=== PATIENT | female | born 1970 | race Caucasian/White ===

== ENCOUNTER 2018-07-10 20:31 | Emergency (ER) | payer SELFPAY ==
[2018-07-10] MEDS ORDERED: MORPHINE SULFATE IR 15 MG TABLET PO ONE (23:31)
[2018-07-10] MEDS ORDERED: ONDANSETRON 4 MG TAB.RAPDIS PO ONE (23:31)
--- NOTE | 2018-07-10 23:33 | ER Document Report ---
ED Medical Screen (RME) - General Chief Complaint: Anemia Stated Complaint: STOMACH PAIN Time Seen by Provider: 07/10/18 23:30 Notes: 47-year-old female with a history of ascites and anemia, chief complaint of worsening abdominal pain over the past 2 days, she does report abdominal swelling. She states that she was told that she does not have cirrhosis, she states that gastroenterology in [place], was recently admitted at [facility] and discharged. She denies fever, vomiting, bloody bowel movements. She reports weakness, states she has been transfused multiple times in the past. Denies dizziness or passing out. TRAVEL OUTSIDE OF THE [place] IN LAST 30 DAYS: No Physical Exam - Vital signs Vitals: Temp Pulse Resp BP Pulse Ox 97.9 F 111 H 20 127/70 H 100 07/10/18 21:33 07/10/18 21:33 07/10/18 21:33 07/10/18 21:33 07/10/18 21:33 - General General appearance: Appears well In distress: None - Abdominal Distension: Distended Tenderness: Tender - Generalized Course - Re-evaluation Re-evalutation: Patient insists she does not have cirrhosis, she has what appears to be gross ascites with generalized abdominal tenderness but not rigidity. No fever. Mildly tachycardic. No previous records here. - Vital Signs Vital signs: Temp Pulse Resp BP Pulse Ox 97.9 F 111 H 20 127/70 H 100 07/10/18 21:33 07/10/18 21:33 07/10/18 21:33 07/10/18 21:33 07/10/18 21:33
[2018-07-11 00:50] LABS: HEMATOCRIT 29.2 % (36.0-47.0); HEMOGLOBIN 9.7 g/dL (12.0-15.5); MEAN CORPUSCULAR HEMOGLOBIN 29.1 pg (27.0-33.4); MEAN CORPUSCULAR HGB CONC 33.3 g/dL (32.0-36.0); MEAN CORPUSCULAR VOLUME 87 fl (80-97); PLATELET COUNT 203 10^3/uL (150-450); RED BLOOD COUNT 3.35 10^6/uL (3.72-5.28); RED CELL DISTRIBUTION WIDTH 26.2 % (11.5-14.0); WHITE BLOOD COUNT 10.5 10^3/uL (4.0-10.5)
[2018-07-11 00:59] LABS: INTERNATIONAL RATION (INR) 1.15; PROTHROMBIN TIME 15.3 SEC (11.4-15.4)
[2018-07-11 01:00] LABS: PARTIAL THROMBOPLASTIN TIME 35.4 SEC (23.5-35.8)
[2018-07-11 01:46] LABS: ABSOLUTE LYMPHOCYTES# (MANUAL) 1.3 10^3/uL (0.5-4.7); ABSOLUTE MONOCYTES # (MANUAL) 0.4 10^3/uL (0.1-1.4); ABSOLUTE NEUTROPHILS# (MANUAL) 8.5 10^3/uL (1.7-8.2); ANISOCYTOSIS 3+; BASOPHILS % (MANUAL) 1 % (0-2); EOSINOPHILS % (MANUAL) 2 % (0-6); LYMPHOCYTES % (MANUAL) 12 % (13-45); MONOCYTES % (MANUAL) 4 % (3-13); POIKILOCYTOSIS SLIGHT; SEGMENTED NEUTROPHILS % (MAN) 81 % (42-78); TOTAL CELLS COUNTED 100; TOXIC GRANULATION 1+
[2018-07-11 01:47] LABS: PLATELET CLUMPS PRESENT; PLATELET COMMENT ADEQUATE; PLATELET LARGE PRESENT; SCHISTOCYTES 1+
[2018-07-11] MEDS ORDERED: NICOTINE 21 MG/24 HR PATCH.TD24 TD ONE (02:09)
--- NOTE | 2018-07-11 02:17 | ER Document Report ---
ED General - General Chief Complaint: Anemia Stated Complaint: STOMACH PAIN Time Seen by Provider: 07/10/18 23:30 TRAVEL OUTSIDE OF THE [place] IN LAST 30 DAYS: No - HPI Notes: 47-year-old female who is an exceptionally poor historian presents with abdominal pain and distention. Patient states she has a history of similar presentation 15 years ago and was told it was because "too much sodium". She indicates over the last 3-4 weeks she has developed increased abdominal girth and pain. She states that she was admitted at [facility] a couple of weeks ago, by description they did at least 2 separate paracentesis, ultrasound and extensive workup. She is very vague about the remainder the history but states that she "does not have cirrhosis". Her agrees that she looks chronically ill and is been going on for at least several weeks or months. She used to be a heavy drinker but states she is "cut down" a lot last 2 years. She is a smoker. Describes diffuse aching pain that radiates into her back. Ongoing for some time. She was seen by the physician in triage where labs were ordered, ultrasound is ordered and she was given oral morphine. No other modifying factors, no other associated symptoms, no other provocative or palliative factors. Past Medical History - Social History Smoking Status: Current Every Day Smoker Family History: Reviewed & Not Pertinent Review of Systems - Review of Systems Notes: Review of systems as in the history of present illness, otherwise negative x 10 systems. Physical Exam - Vital signs Vitals: Temp Pulse Resp BP Pulse Ox 97.9 F 111 H 20 127/70 H 100 07/10/18 21:33 07/10/18 21:33 07/10/18 21:33 07/10/18 21:33 07/10/18 21:33 - Notes Notes: General: Chronically ill in appearance HEENT: Normocephalic, atraumatic. Pupils equal round reactive to light. No JVD. There appear mildly icteric Chest: No trauma. Respiratory: Good air exchange, normal excursion. Cardiac: Regular rhythm. No murmurs or gallops. Abdomen: Soft and distended, no guarding rigidity or rebound. No obvious tenderness. Significant fluid wave is noted. Back: No asymmetry or gross abnormality. Motor: Grossly normal power and tone. Neurologic: Alert, nonfocal. Cranial nerves II-12 are intact. Sensation intact. Vascular: Well perfused. Normal peripheral pulses. Skin: No petechiae or purpura. Course - Re-evaluation Re-evalutation: 07/11/18 02:16 Chronically ill-appearing female who has gross evidence of ascites. Certainly appears to be high risk for underlying cirrhosis. Abdomen is benign, afebrile, I think SBP is somewhat unlikely. Discomfort and pain to be related to her underlying distention. Of note, she has no respiratory embarrassment or compromise. Plan to check with labs, ultrasound, serial examination and reassess. 07/11/18 03:55 Labs reviewed, CBC unremarkable with the exception of anemia, hemoglobin 9.7. LFTs are modestly elevated. Albumin low consistent with her underlying cirrhosis history. Ultrasonography shows ascites and likely cirrhosis. Records are obtained from [facility] and they reference her long- standing history of ascites and cirrhosis. I have indicated the patient the absolute critical importance of her following up with gastroenterology. She has an appointment in approximately 2 weeks time. Otherwise serial examination show benign abdomen, no fever, I think this is unlikely to be SBP. She is discharged home to follow-up, I have admonished her to immediately ceased drinking. She is drinking unquantified but small amount of "wine" daily. - Vital Signs Vital signs: Temp Pulse Resp BP Pulse Ox 97.9 F 90 16 117/68 100 07/10/18 21:33 07/11/18 02:25 07/11/18 02:25 07/11/18 02:25 07/11/18 02:25 - Laboratory Result Diagrams: 07/11/18 00:27 07/11/18 01:56 Laboratory results interpreted by me: 07/11/18 07/11/18 00:27 01:56 RBC 3.35 L Hgb 9.7 L Hct 29.2 L RDW 26.2 H Seg Neuts % (Manual) 81 H Lymphocytes % (Manual) 12 L Abs Neuts (Manual) 8.5 H Sodium 131.0 L Chloride 97 L BUN 3 L Creatinine 0.40 L Total Bilirubin 2.1 H Direct Bilirubin 1.3 H AST 51 H Alkaline Phosphatase 215 H Albumin 2.8 L Discharge - Discharge Clinical Impression: Ascites Qualifiers: Ascites type: due to alcoholic cirrhosis Qualified Code(s): K70.31 - Alcoholic cirrhosis of liver with ascites Abdominal pain Qualifiers: Abdominal location: generalized Qualified Code(s): R10.84 - Generalized abdominal pain Disposition: HOME, SELF-CARE Additional Instructions: Follow-up with gastroenterology as discussed
[2018-07-11 02:34] LABS: ALANINE AMINOTRANSFERASE 28 U/L (9-52); ALBUMIN 2.8 g/dL (3.5-5.0); ALKALINE PHOSPHATASE 215 U/L (38-126); ANION GAP 11 (5-19); ASPARTATE AMINO TRANSFERASE 51 U/L (14-36); BILIRUBIN,DIRECT 1.3 mg/dL (0.0-0.4); BILIRUBIN,TOTAL 2.1 mg/dL (0.2-1.3); BLOOD UREA NITROGEN 3 mg/dL (7-20); CALCIUM 8.4 mg/dL (8.4-10.2); CARBON DIOXIDE 23 mmol/L (22-30); CHLORIDE 97 mmol/L (98-107); GLUCOSE 92 mg/dL (75-110); LIPASE 53.5 U/L (23-300); POTASSIUM 3.7 mmol/L (3.6-5.0); TOTAL PROTEIN 6.8 g/dL (6.3-8.2)
--- NOTE | 2018-07-11 03:22 | RADIOLOGY REPORT (SQ) ---
EXAM DESCRIPTION: US ABDOMEN COMPLETED DATE/TME: 07/10/2018 23:31 CLINICAL HISTORY: 47 years Female, evaluate abd pain and ascites Comparison: None. LIMITATIONS: None. FINDINGS: Large ascites. Gallbladder, negative sonographic Peterson's test, liver, a 0.5-cm diameter common bile duct, no intrahepatic ductal dilation, 10-cm right kidney, 9 cm left kidney, pancreas, spleen, visualized vasculature/abdominal aorta appear otherwise unremarkable. IMPRESSION: Large ascites.
[2018-07-11 05:00] VITALS: BP 119/67
== END 2018-07-11 05:09 | disposition home or self-care (01) ==
LOC: ER 20:31
DX: K70.31 Alcoholic cirrhosis of liver with ascites (principal); R10.84 Generalized abdominal pain; F17.200 Nicotine dependence, unspecified, uncomplicated
CPT/HCPCS: 99284; 36415; 83690; 85025; 85610; 85730; 80053; 76700; S0119

== ENCOUNTER 2019-06-05 16:32 | Emergency (ER) | payer OTHER ==
--- NOTE | 2019-06-05 17:00 | ER Document Report ---
ED Dizziness/Weakness - General Chief Complaint: Altered Mental Status Stated Complaint: ALTERED MENTAL STATUS Time Seen by Provider: 06/05/19 16:59 Notes: 48-year-old female brought in for evaluation for altered mental status. Patient reportedly is a chronic alcoholic with more likely end-stage cirrhosis. Does not seek medical care. Daughter states that all she does is drink alcohol. Became more more unarousable today. Her belly is distended. She looks more orange and yellow than usual. Patient denying any complaints but very confused and difficult to carry on a conversation with. TRAVEL OUTSIDE OF THE [place] IN LAST 30 DAYS: No - HPI Patient complains to provider of: Altered mental status, Weakness Onset/Duration: Gradual Severity: Severe Pain Level: Denies - Related Data Allergies/Adverse Reactions: No Known Allergies Allergy (Unverified 06/05/19 18:30) Past Medical History - General Information source: Patient Cannot obtain history due to: Uncooperative, Altered mental status - Social History Smoking Status: Unknown if Ever Smoked Frequency of alcohol use: Heavy Lives with: Friend Family History: Reviewed & Not Pertinent - Medical History Notes: Severe alcoholism Renal/ Medical History: Denies: Hx Peritoneal Dialysis Review of Systems - Review of Systems -: Yes ROS unobtainable due to patient's medical condition Physical Exam - Vital signs Vitals: Pulse Resp BP Pulse Ox 115 H 17 104/60 100 06/05/19 16:37 06/05/19 16:37 06/05/19 16:37 06/05/19 16:37 Interpretation: Tachycardic, Tachypneic - Notes Notes: Cachectic - General General appearance: Lethargic In distress: Moderate Notes: Very ill-appearing, - HEENT Head: Normocephalic, Atraumatic Eyes: Scleral icterus Cornea: Normal Pupils: PERRL Mucous membranes: Dry Pharynx: Normal Neck: Normal - Respiratory Respiratory status: Tachypnea Chest status: Nontender Breath sounds: Normal Chest palpation: Normal - Cardiovascular Rhythm: Tachycardia Heart sounds: Normal auscultation Murmur: No - Abdominal Inspection: Caput medussa, Striae Distension: Distended Bowel sounds: Normal Tenderness: Nontender Organomegaly: No organomegaly - Back Back: Normal, Nontender - Extremities General upper extremity: Normal inspection, Nontender, Normal ROM, Normal temperature. No: Normal color - Jaundiced General lower extremity: Normal inspection, Nontender, Normal ROM, Normal temperature. No: Normal color - Jaundiced, Yadira's sign - Neurological Neuro grossly intact: Yes Cognition: Confused Orientation: Disoriented to place Farrar Coma Scale Eye Opening: To Voice Judi Coma Scale Verbal: Confused Farrar Coma Scale Motor: Localizes to Pain Farrar Coma Scale Total: 12 Speech: Normal Motor strength normal: LUE, RUE, LLE, RLE Sensory: Normal - Psychological Associated symptoms: Normal affect, Normal mood - Skin Skin Temperature: Warm Skin Moisture: Dry Skin Color: Jaundiced Course - Re-evaluation Re-evalutation: 06/05/19 18:17 This is an extremely ill-appearing 48-year-old female, cachectic and jaundiced, tachycardic and altered. Appears to have end-stage cirrhosis. 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 Immediate consultation was requested with poolroom table attendant due to her anticipated issues. He does recommend that she needs to be at the highest level of care which is not here. More likely will need a TIPS procedure. Once I get all the labs back to work on transfer. Anticipate that she may actually soon. I have spoken with the grave nature of her condition with the family members. 06/05/19 18:20 Panic potassium of 1.9. IV potassium ordered. Panic hemoglobin and hematocrit. Blood transfusion ordered. 06/05/19 20:45 Laboratory 06/05/19 06/05/19 06/05/19 17:20 17:20 17:20 WBC 12.1 H RBC 2.22 L Hgb 6.6 L Hct 20.7 L MCV 93 MCH 30.0 MCHC 32.1 RDW 19.4 H Plt Count 122 L Seg Neutrophils % 80.0 H Lymphocytes % 6.8 L Monocytes % 12.5 Eosinophils % 0.2 Basophils % 0.5 Absolute Neutrophils 9.7 H Absolute Lymphocytes 0.8 Absolute Monocytes 1.5 H Absolute Eosinophils 0.0 Absolute Basophils 0.1 PT INR APTT Carbonic Acid HCO3/H2CO3 Ratio ABG pH ABG pCO2 ABG pO2 ABG HCO3 ABG Total CO2 ABG O2 Saturation ABG Base Excess VBG pH VBG pCO2 VBG HCO3 VBG Base Excess FiO2 Sodium 122.9 L Potassium 1.9 L* Chloride 82 L Carbon Dioxide 25 Anion Gap 16 BUN 9 Creatinine 0.49 L Est GFR ( Amer) > 60 Est GFR (Non-Af Amer) > 60 Glucose 74 L Lactic Acid Calcium 6.6 L* Total Bilirubin 9.6 H Direct Bilirubin 7.4 H Neonat Total Bilirubin Not Reportable Neonat Direct Bilirubin Not Reportable Neonat Indirect Bili Not Reportable AST 51 H ALT 24 Alkaline Phosphatase 222 H Ammonia 110.7 H Troponin I Total Protein 6.3 Albumin 2.5 L Urine Color Urine Appearance Urine pH Ur Specific [place] Urine Protein Urine Glucose (UA) Urine Ketones Urine Blood Urine Nitrite Urine Bilirubin Urine Urobilinogen Ur Leukocyte Esterase Urine WBC (Auto) Urine RBC (Auto) U Hyaline Cast (Auto) Urine Bacteria (Auto) Squamous Epi Cells Auto Urine Mucus (Auto) Urine Ascorbic Acid Urine Opiates Screen Urine Methadone Screen Ur Barbiturates Screen Ur Phencyclidine Scrn Ur Amphetamines Screen U Benzodiazepines Scrn Urine Cocaine Screen U Marijuana (THC) Screen Serum Alcohol Blood Type Blood Type Confirm Antibody Screen Crossmatch 06/05/19 06/05/19 06/05/19 17:20 17:20 17:20 WBC RBC Hgb Hct MCV MCH MCHC RDW Plt Count Seg Neutrophils % Lymphocytes % Monocytes % Eosinophils % Basophils % Absolute Neutrophils Absolute Lymphocytes Absolute Monocytes Absolute Eosinophils Absolute Basophils PT 21.1 H INR 1.79 APTT 36.8 H Carbonic Acid HCO3/H2CO3 Ratio ABG pH ABG pCO2 ABG pO2 ABG HCO3 ABG Total CO2 ABG O2 Saturation ABG Base Excess VBG pH Cancelled VBG pCO2 Cancelled VBG HCO3 Cancelled VBG Base Excess Cancelled FiO2 Sodium Potassium Chloride Carbon Dioxide Anion Gap BUN Creatinine Est GFR ( Amer) Est GFR (Non-Af Amer) Glucose Lactic Acid 1.1 Calcium Total Bilirubin Direct Bilirubin Neonat Total Bilirubin Neonat Direct Bilirubin Neonat Indirect Bili AST ALT Alkaline Phosphatase Ammonia Troponin I Total Protein Albumin Urine Color Urine Appearance Urine pH Ur Specific [place] Urine Protein Urine Glucose (UA) Urine Ketones Urine Blood Urine Nitrite Urine Bilirubin Urine Urobilinogen Ur Leukocyte Esterase Urine WBC (Auto) Urine RBC (Auto) U Hyaline Cast (Auto) Urine Bacteria (Auto) Squamous Epi Cells Auto Urine Mucus (Auto) Urine Ascorbic Acid Urine Opiates Screen Urine Methadone Screen Ur Barbiturates Screen Ur Phencyclidine Scrn Ur Amphetamines Screen U Benzodiazepines Scrn Urine Cocaine Screen U Marijuana (THC) Screen Serum Alcohol Blood Type Blood Type Confirm Antibody Screen Crossmatch 06/05/19 06/05/19 06/05/19 17:20 17:20 17:25 WBC RBC Hgb Hct MCV MCH MCHC RDW Plt Count Seg Neutrophils % Lymphocytes % Monocytes % Eosinophils % Basophils % Absolute Neutrophils Absolute Lymphocytes Absolute Monocytes Absolute Eosinophils Absolute Basophils PT INR APTT Carbonic Acid Cancelled HCO3/H2CO3 Ratio Cancelled ABG pH Cancelled ABG pCO2 Cancelled ABG pO2 Cancelled ABG HCO3 Cancelled ABG Total CO2 Cancelled ABG O2 Saturation Cancelled ABG Base Excess Cancelled VBG pH VBG pCO2 VBG HCO3 VBG Base Excess FiO2 Cancelled Sodium Potassium Chloride Carbon Dioxide Anion Gap BUN Creatinine Est GFR ( Amer) Est GFR (Non-Af Amer) Glucose Lactic Acid Calcium Total Bilirubin Direct Bilirubin Neonat Total Bilirubin Neonat Direct Bilirubin Neonat Indirect Bili AST ALT Alkaline Phosphatase Ammonia Troponin I < 0.012 Total Protein Albumin Urine Color Urine Appearance Urine pH Ur Specific [place] Urine Protein Urine Glucose (UA) Urine Ketones Urine Blood Urine Nitrite Urine Bilirubin Urine Urobilinogen Ur Leukocyte Esterase Urine WBC (Auto) Urine RBC (Auto) U Hyaline Cast (Auto) Urine Bacteria (Auto) Squamous Epi Cells Auto Urine Mucus (Auto) Urine Ascorbic Acid Urine Opiates Screen Urine Methadone Screen Ur Barbiturates Screen Ur Phencyclidine Scrn Ur Amphetamines Screen U Benzodiazepines Scrn Urine Cocaine Screen U Marijuana (THC) Screen Serum Alcohol < 10 Blood Type Blood Type Confirm Antibody Screen Crossmatch 06/05/19 06/05/19 06/05/19 17:45 17:45 18:45 WBC RBC Hgb Hct MCV MCH MCHC RDW Plt Count Seg Neutrophils % Lymphocytes % Monocytes % Eosinophils % Basophils % Absolute Neutrophils Absolute Lymphocytes Absolute Monocytes Absolute Eosinophils Absolute Basophils PT INR APTT Carbonic Acid HCO3/H2CO3 Ratio ABG pH ABG pCO2 ABG pO2 ABG HCO3 ABG Total CO2 ABG O2 Saturation ABG Base Excess VBG pH VBG pCO2 VBG HCO3 VBG Base Excess FiO2 Sodium Potassium Chloride Carbon Dioxide Anion Gap BUN Creatinine Est GFR ( Amer) Est GFR (Non-Af Amer) Glucose Lactic Acid Calcium Total Bilirubin Direct Bilirubin Neonat Total Bilirubin Neonat Direct Bilirubin Neonat Indirect Bili AST ALT Alkaline Phosphatase Ammonia Troponin I Total Protein Albumin Urine Color CHAO Urine Appearance CLOUDY Urine pH 5.0 Ur Specific [place] 1.015 Urine Protein 30 H Urine Glucose (UA) NEGATIVE Urine Ketones TRACE H Urine Blood SMALL H Urine Nitrite POSITIVE H Urine Bilirubin MODERATE H Urine Urobilinogen 4.0 H Ur Leukocyte Esterase NEGATIVE Urine WBC (Auto) 4 Urine RBC (Auto) 1 U Hyaline Cast (Auto) 13 Urine Bacteria (Auto) 3+ Squamous Epi Cells Auto 2 Urine Mucus (Auto) FEW Urine Ascorbic Acid NEGATIVE Urine Opiates Screen NEGATIVE Urine Methadone Screen NEGATIVE Ur Barbiturates Screen NEGATIVE Ur Phencyclidine Scrn NEGATIVE Ur Amphetamines Screen NEGATIVE U Benzodiazepines Scrn NEGATIVE Urine Cocaine Screen NEGATIVE U Marijuana (THC) Screen UNCONFIRMED POSITIVE Serum Alcohol Blood Type O POSITIVE Blood Type Confirm Antibody Screen NEGATIVE Crossmatch See Detail 06/05/19 06/05/19 06/05/19 18:45 18:48 19:53 WBC RBC Hgb Hct MCV MCH MCHC RDW Plt Count Seg Neutrophils % Lymphocytes % Monocytes % Eosinophils % Basophils % Absolute Neutrophils Absolute Lymphocytes Absolute Monocytes Absolute Eosinophils Absolute Basophils PT INR APTT Carbonic Acid 0.77 L HCO3/H2CO3 Ratio 28:1 ABG pH 7.55 H ABG pCO2 25.6 L ABG pO2 136.6 H ABG HCO3 21.9 ABG Total CO2 22.7 ABG O2 Saturation 99.1 H ABG Base Excess -0.2 VBG pH 7.46 H VBG pCO2 37.3 VBG HCO3 26.1 VBG Base Excess 2.2 FiO2 2L Sodium Potassium Chloride Carbon Dioxide Anion Gap BUN Creatinine Est GFR ( Amer) Est GFR (Non-Af Amer) Glucose Lactic Acid Calcium Total Bilirubin Direct Bilirubin Neonat Total Bilirubin Neonat Direct Bilirubin Neonat Indirect Bili AST ALT Alkaline Phosphatase Ammonia Troponin I Total Protein Albumin Urine Color Urine Appearance Urine pH Ur Specific [place] Urine Protein Urine Glucose (UA) Urine Ketones Urine Blood Urine Nitrite Urine Bilirubin Urine Urobilinogen Ur Leukocyte Esterase Urine WBC (Auto) Urine RBC (Auto) U Hyaline Cast (Auto) Urine Bacteria (Auto) Squamous Epi Cells Auto Urine Mucus (Auto) Urine Ascorbic Acid Urine Opiates Screen Urine Methadone Screen Ur Barbiturates Screen Ur Phencyclidine Scrn Ur Amphetamines Screen U Benzodiazepines Scrn Urine Cocaine Screen U Marijuana (THC) Screen Serum Alcohol Blood Type Blood Type Confirm O POSITIVE Antibody Screen Crossmatch Chest X-Ray 06/05/19 17:08 IMPRESSION: NO ACUTE RADIOGRAPHIC FINDING IN THE CHEST. Head CT 06/05/19 17:09 IMPRESSION: NORMAL BRAIN CT WITHOUT CONTRAST. EVIDENCE OF ACUTE STROKE: NO. 06/05/19 20:46 Patient does not appear to be acidotic but appears to be alkalotic. Will DC the oxygen at this time. Large amount of ketones so starvation a part of the issue. Giving her lactulose SC. Giving her fluids. Given her potassium. Have ordered transfusion of blood due to hemoglobin of 6. Patient in critical condition. Transfer to [facility] at this time. - Vital Signs Vital signs: Temp Pulse Resp BP Pulse Ox 99.2 F 109 H 14 101/51 L 100 06/05/19 21:54 06/05/19 22:10 06/05/19 22:25 06/05/19 22:25 06/05/19 22:25 - Laboratory Result Diagrams: 06/05/19 17:20 06/05/19 17:20 Laboratory results interpreted by me: 06/05/19 06/05/19 06/05/19 17:20 17:20 17:20 WBC 12.1 H RBC 2.22 L Hgb 6.6 L Hct 20.7 L RDW 19.4 H Plt Count 122 L Seg Neutrophils % 80.0 H Lymphocytes % 6.8 L Absolute Neutrophils 9.7 H Absolute Monocytes 1.5 H PT APTT Carbonic Acid ABG pH ABG pCO2 ABG pO2 ABG O2 Saturation VBG pH Sodium 122.9 L Potassium 1.9 L* Chloride 82 L Creatinine 0.49 L Glucose 74 L Calcium 6.6 L* Total Bilirubin 9.6 H Direct Bilirubin 7.4 H AST 51 H Alkaline Phosphatase 222 H Ammonia 110.7 H Albumin 2.5 L Urine Protein Urine Ketones Urine Blood Urine Nitrite Urine Bilirubin Urine Urobilinogen Crossmatch 06/05/19 06/05/19 06/05/19 17:20 17:45 18:45 WBC RBC Hgb Hct RDW Plt Count Seg Neutrophils % Lymphocytes % Absolute Neutrophils Absolute Monocytes PT 21.1 H APTT 36.8 H Carbonic Acid ABG pH ABG pCO2 ABG pO2 ABG O2 Saturation VBG pH Sodium Potassium Chloride Creatinine Glucose Calcium Total Bilirubin Direct Bilirubin AST Alkaline Phosphatase Ammonia Albumin Urine Protein 30 H Urine Ketones TRACE H Urine Blood SMALL H Urine Nitrite POSITIVE H Urine Bilirubin MODERATE H Urine Urobilinogen 4.0 H Crossmatch See Detail 06/05/19 06/05/19 18:45 19:53 WBC RBC Hgb Hct RDW Plt Count Seg Neutrophils % Lymphocytes % Absolute Neutrophils Absolute Monocytes PT APTT Carbonic Acid 0.77 L ABG pH 7.55 H ABG pCO2 25.6 L ABG pO2 136.6 H ABG O2 Saturation 99.1 H VBG pH 7.46 H Sodium Potassium Chloride Creatinine Glucose Calcium Total Bilirubin Direct Bilirubin AST Alkaline Phosphatase Ammonia Albumin Urine Protein Urine Ketones Urine Blood Urine Nitrite Urine Bilirubin Urine Urobilinogen Crossmatch - EKG Interpretation by [place] EKG shows normal: [place], Intervals, QRS Complexes. abnormal: ST-T Waves - Diffuse ST segment depressions Rate: Tachycardia Critical Care Note - Critical Care Note Total time excluding time spent on procedures (mins): 75 Comments: Consultation with specialist, coordination of transfer of care, immediate stabilization of severe elect light abnormalities, altered mental status, alternative history sources Discharge - Discharge Clinical Impression: Hypokalemia due to inadequate potassium intake, Hyponatremia, Hepatic encephalopathy, Hyperbilirubinemia Cirrhosis with alcoholism Qualifiers: Ascites presence: with ascites Qualified Code(s): K70.31 - Alcoholic cirrhosis of liver with ascites Anemia Qualifiers: Anemia type: unspecified type Qualified Code(s): D64.9 - Anemia, unspecified Condition: Critical Disposition: [facility]
[2019-06-05 17:51] LABS: ABSOLUTE BASOPHILS # (AUTO) 0.1 10^3/uL (0.0-0.2); ABSOLUTE LYMPHOCYTES (AUTO) 0.8 10^3/uL (0.5-4.7); ABSOLUTE MONOCYTES (AUTO) 1.5 10^3/uL (0.1-1.4); ABSOLUTE NEUT (AUTO) 9.7 10^3/uL (1.7-8.2); BASOPHILS % (AUTO) 0.5 % (0-2); EOSINOPHILS % (AUTO) 0.2 % (0-6); HEMATOCRIT 20.7 % (36.0-47.0); INTERNATIONAL RATION (INR) 1.79; LYMPHOCYTES % (AUTO) 6.8 % (13-45); MEAN CORPUSCULAR HGB CONC 32.1 g/dL (32.0-36.0); MEAN CORPUSCULAR VOLUME 93 fl (80-97); MONOCYTES % (AUTO) 12.5 % (3-13); PARTIAL THROMBOPLASTIN TIME 36.8 SEC (23.5-35.8); PLATELET COUNT 122 10^3/uL (150-450); PROTHROMBIN TIME 21.1 SEC (11.4-15.4); RED BLOOD COUNT 2.22 10^6/uL (3.72-5.28); RED CELL DISTRIBUTION WIDTH 19.4 % (11.5-14.0); TOTAL CELLS COUNTED % (AUTO) 100 %; WHITE BLOOD COUNT 12.1 10^3/uL (4.0-10.5)
[2019-06-05 17:54] LABS: HEMOGLOBIN 6.6 g/dL (12.0-15.5)
[2019-06-05] MEDS ORDERED: NORMAL SALINE 250 ML IV PRN (17:58)
[2019-06-05] MEDS ORDERED: DEXTROSE 5%-1/2 NORMAL SALINE 1,000 ML IV ONE (17:59)
[2019-06-05 18:08] LABS: ALANINE AMINOTRANSFERASE 24 U/L (9-52); ALBUMIN 2.5 g/dL (3.5-5.0); ALKALINE PHOSPHATASE 222 U/L (38-126); ANION GAP 16 (5-19); ASPARTATE AMINO TRANSFERASE 51 U/L (14-36); BILIRUBIN,DIRECT 7.4 mg/dL (0.0-0.4); BILIRUBIN,TOTAL 9.6 mg/dL (0.2-1.3); BLOOD UREA NITROGEN 9 mg/dL (7-20); CARBON DIOXIDE 25 mmol/L (22-30); CHLORIDE 82 mmol/L (98-107); GLUCOSE 74 mg/dL (75-110); TOTAL PROTEIN 6.3 g/dL (6.3-8.2)
[2019-06-05 18:15] LABS: CALCIUM 6.6 mg/dL (8.4-10.2); POTASSIUM 1.9 mmol/L (3.6-5.0)
[2019-06-05] MEDS ORDERED: LACTULOSE SYRUP 20 GM/30 ML UDCUP PR ONE ×2 (18:19→19:30)
--- NOTE | 2019-06-05 18:24 | RADIOLOGY REPORT (SQ) ---
EXAM DESCRIPTION: CT HEAD WITHOUT COMPLETED DATE/TIME: 06/05/2019 6:07 pm REASON FOR STUDY: altered mental status COMPARISON: None. TECHNIQUE: Axial images acquired through the brain without intravenous contrast. Images reviewed wi th bone, brain and subdural windows. Additional sagittal and coronal reconstructions were generated. Images stored on PACS. All CT scanners at this facility use dose modulation, iterative reconstruction, and/or weight based d osing when appropriate to reduce radiation dose to as low as reasonably achievable (ALARA). [facility]: Dose Right [facility]: CareDose [facility]: Dose Right [facility]: Teradose 4D [facility]: Smart Kybernesis RADIATION DOSE: CT Rad equipment meets quality standard of care and radiation dose reduction techniq ues were employed. CTDIvol: 53.2 mGy. DLP: 991 mGy-cm. mGy. LIMITATIONS: None. FINDINGS: VENTRICLES: Normal size and contour. CEREBRUM: No masses. No hemorrhage. No midline shift. No evidence for acute infarction. Normal gra y/white matter differentiation. No areas of low density in the white matter. CEREBELLUM: No masses. No hemorrhage. No alteration of density. No evidence for acute infarction. EXTRAAXIAL SPACES: No fluid collections. No masses. ORBITS AND GLOBE: No intra- or extraconal masses. Normal contour of globe without masses. CALVARIUM: No fracture. PARANASAL SINUSES: No fluid or mucosal thickening. SOFT TISSUES: No mass or hematoma. OTHER: No other significant finding. IMPRESSION: NORMAL BRAIN CT WITHOUT CONTRAST. EVIDENCE OF ACUTE STROKE: NO. COMMENT: Quality ID # [id number]: Final reports with documentation of one or more dose reduction techniques (e.g., Automated exposure control, adjustment of the mA and/or kV according to patient size, use of iterative reconstruction technique) TECHNICAL DOCUMENTATION: JOB ID: [id number] [employer]- All Rights Reserved Reading location - IP/workstation name: [email or web address]
--- NOTE | 2019-06-05 18:27 | RADIOLOGY REPORT (SQ) ---
EXAM DESCRIPTION: CHEST SINGLE VIEW COMPLETED DATE/TIME: 06/05/2019 6:13 pm REASON FOR STUDY: sob COMPARISON: None. EXAM PARAMETERS: NUMBER OF VIEWS: One view. TECHNIQUE: Single frontal radiographic view of the chest acquired. RADIATION DOSE: NA LIMITATIONS: None. FINDINGS: LUNGS AND PLEURA: No opacities, masses or pneumothorax. No pleural effusion. MEDIASTINUM AND HILAR STRUCTURES: No masses. Contour normal. HEART AND VASCULAR STRUCTURES: Heart normal in size. Normal vasculature. BONES: No acute findings. HARDWARE: None in the chest. OTHER: No other significant finding. IMPRESSION: NO ACUTE RADIOGRAPHIC FINDING IN THE CHEST. TECHNICAL DOCUMENTATION: JOB ID: [id number] [employer]- All Rights Reserved Reading location - IP/workstation name: [email or web address]
[2019-06-05 18:47] LABS: APPEARANCE,URINE CLOUDY; BILIRUBIN,URINE MODERATE (NEGATIVE); COLOR,URINE AMBER; GLUCOSE, URINE NEGATIVE (NEGATIVE); KETONES,URINE TRACE mg/dL (NEGATIVE); LEUKOCYTE ESTERASE,URINE NEGATIVE (NEGATIVE); NITRITE,URINE POSITIVE (NEGATIVE); PROTEIN,URINE 30 mg/dL (NEGATIVE); URINE SPECIFIC GRAVITY 1.015
[2019-06-05] MEDS: POTASSI CL 20 MEQ/50 ML RIDER 20 MEQ/50 ML RTUPB IV SCH ×2 (19:05→21:41)
[2019-06-05 19:28] LABS: VENOUS BLOOD BASE EXCESS 2.2 mmol/L; VENOUS BLOOD HCO3 26.1 mmol/L (20-32); VENOUS BLOOD PCO2 37.3 mmHg (35-63); VENOUS BLOOD PH 7.46 (7.30-7.42)
[2019-06-05 20:04] LABS: URINE AMPHETAMINES SCREEN NEGATIVE; URINE BARBITURATES SCREEN NEGATIVE; URINE BENZODIAZEPINES SCREEN NEGATIVE; URINE COCAINE SCREEN NEGATIVE; URINE MARIJUANA (THC) SCREEN UNCONFIRMED POSITIVE; URINE METHADONE SCREEN NEGATIVE; URINE PHENCYCLIDINE SCREEN NEGATIVE
[2019-06-05 20:15] LABS: ARTERIAL BLOOD BASE EXCESS -0.2 mmol/L; ARTERIAL BLOOD H2CO3 0.77 mmol/L (1.05-1.35); ARTERIAL BLOOD HCO3 21.9 mmol/L (20-24); ARTERIAL BLOOD O2 SATURATION 99.1 % (94-98); ARTERIAL BLOOD PCO2 25.6 mmHg (35-45); ARTERIAL BLOOD PH 7.55 (7.35-7.45); ARTERIAL BLOOD PO2 136.6 mmHg (80-100); ARTERIAL BLOOD TOTAL CO2 22.7 mmol/L (21-25)
[2019-06-05 20:16] LABS: ARTERIAL BLOOD FIO2 2L
--- NOTE | 2019-06-05 23:14 | EKG REPORT ---
SEVERITY:- ABNORMAL ECG - SINUS TACHYCARDIA ABNORMAL T, CONSIDER ISCHEMIA, DIFFUSE LEADS VS LVH : Confirmed by: Hunter Saravia 05-Jun-2019 23:13:53
--- NOTE | 2019-06-05 23:14 | EKG REPORT ---
SEVERITY:- ABNORMAL ECG - SINUS TACHYCARDIA NONSPECIFIC T ABNORMALITIES, DIFFUSE LEADS LVH : Confirmed by: Hunter Saravia 05-Jun-2019 23:13:35
[2019-06-06] MEDS: POTASSI CL 20 MEQ/50 ML RIDER 20 MEQ/50 ML RTUPB IV SCH (00:11)
[2019-06-06 04:44] LABS: ANION GAP 11 (5-19); BLOOD UREA NITROGEN 7 mg/dL (7-20); CARBON DIOXIDE 26 mmol/L (22-30); CHLORIDE 89 mmol/L (98-107); GLUCOSE 143 mg/dL (75-110)
[2019-06-06 05:09] LABS: CALCIUM 6.9 mg/dL (8.4-10.2); POTASSIUM 2.8 mmol/L (3.6-5.0)
[2019-06-06] MEDS ORDERED: CALCIUM GLUCONATE 1000 MG/10 ML INJ IV ONE (05:11)
[2019-06-06] MEDS ORDERED: POTASSI CL 40 MEQ/D5-1/2NS 1L 40 MEQ/1,000 ML RTUINJ IV PRN (05:12)
[2019-06-06] MEDS ORDERED: THIAMINE HCL 100 MG in NORMAL SALINE 50 ML IV ONE (05:13)
[2019-06-06] MEDS ORDERED: CEFTRIAXONE 1 GM/D5W RTU 1 GM/50 ML RTUPB IV ONE (05:13)
[2019-06-06] MEDS ORDERED: THIAMINE HCL INJ 200 MG/2 ML VIAL ONE (05:37)
[2019-06-06 08:22] VITALS: BP 121/82
--- NOTE | 2019-06-06 08:28 | ER Document Report ---
Doctor's Note Notes: 06/06/19 08:27 Transport is here to take the patient to [facility]. Blood pressure is 121/82, pulse is 120. Bedside ABG shows a pH of 7.47. Most recent potassium by bedside assay is 2.9 The patient is stable for transport at this time.
== END 2019-06-06 08:30 | disposition short-term general hospital (02) ==
LOC: ER 16:32
DX: K70.40 Alcoholic hepatic failure without coma (principal); F10.20 Alcohol dependence, uncomplicated; D64.9 Anemia, unspecified; E87.6 Hypokalemia; E87.1 Hypo-osmolality and hyponatremia; R14.0 Abdominal distension (gaseous); R41.0 Disorientation, unspecified; R53.1 Weakness; R64 Cachexia; R00.0 Tachycardia, unspecified; R06.82 Tachypnea, not elsewhere classified
CPT/HCPCS: 93005; 86900; 86901; 36415; 87040; 36430; 86850; 80307 ×2; 82140; 82803 ×2; 85025; 85610; 85730; 87077; 80053; 81001; 84484; 86920; 83605; 71045; 70450; 93010; 36600; P9016; J0610; J3480 ×3; J3411; J7050; J0696; 87186; 96361; 96365; 96366; 96368; 96375; 99291; 99292